=== PATIENT | male | born 1955 | race Hispanic/Latino ===

== ENCOUNTER 2024-03-10 01:26 | Inpatient (IN) | payer MEDICARE, SELFPAY ==
[2024-03-10] MEDS ORDERED: Ondansetron PF 4 MG/2 ML Vial ONE (01:43)
[2024-03-10 02:03] LABS: Hematocrit 39.5 % (38.8-50.0); Hemoglobin 13.3 g/dL (13.5-17.5); MDiff Complete? YES; Mean Corpuscular HGB CONC 33.7 g/dL (32.0-36.0); Mean Corpuscular Volume 86.1 fL (81.2-95.1); Mean Platelet Volume 12.2 fL (7.4-10.4); Platelet Count 181 10x3/uL (150-450); RBC Distribution Width 12.9 % (11.5-14.5); Red Blood Cell (RBC) Count 4.59 10x6/uL (4.32-5.72); White Blood Cell (WBC) Count 8.7 10x3/uL (3.5-10.5)
[2024-03-10 02:10] LABS: ALT (SGPT) 20 U/L (8-55); AST (SGOT) 20 U/L (5-34); Albumin 4.1 g/dL (3.4-4.8); Alkaline Phosphatase 103 U/L (40-110); Anion Gap 12 mmol/L (10-20); BUN (Urea Nitrogen) 13 mg/dL (8.4-25.7); Bilirubin, Total 0.3 mg/dL (0.2-1.2); Calc. Creatinine Clearance 0 mL/min (70-130); Calcium 9.6 mg/dL (7.8-10.44); Carbon Dioxide 26 mmol/L (23-31); Chloride 109 mmol/L (98-107); Estimated GFR 96; Globulin 3.5 g/dL (2.4-3.5); Glucose 108 mg/dL (80-115); Lipase 72 U/L (8-78); Potassium 3.6 mmol/L (3.5-5.1); Protein, Total 7.6 g/dL (5.8-8.1); Sodium 143 mmol/L (136-145)
[2024-03-10 02:16] LABS: Troponin I Less than 0.010 ng/mL (< 0.028)
[2024-03-10 02:22] LABS: Band 1 % (5-11); Eosinophils 2 % (0-10); Lymphocytes 30 % (21-51); Monocytes 4 % (0-10); Neutrophil 62 % (42-75); Reactive Lymphocytes 1 % (0-10)
[2024-03-10 02:26] LABS: Large Platelets SLIGHT (None Seen); RBC Morph Comment Within Normal Limits
[2024-03-10 02:27] LABS: Platelet Adequacy Comment Appears Adequate
[2024-03-10] MEDS ORDERED: Lidocaine Viscous Sol 2% 15 ml UD Cup ONE (05:14)
[2024-03-10] MEDS ORDERED: Milk Of Magnesia 30 ML UDCUP ONE (05:14)
[2024-03-10] MEDS: Lidocaine 2% Viscous 10 mL, Alum & Magn 30 mL SSW SCH (05:30)
[2024-03-10] MEDS ORDERED: Senokot S 8.6-50 MG TAB PO PRN (09:03)
[2024-03-10] MEDS ORDERED: Acetaminophen 325 MG TAB PO PRN (09:03)
[2024-03-10 09:44] LABS: Magnesium 2.3 mg/dL (1.6-2.6); Phosphorus 2.7 mg/dL (2.3-4.7)
[2024-03-10] MEDS: Enoxaparin 40 MG (0.4 mL) SYRINGE SC SCH (11:00)
[2024-03-10] MEDS: Aspirin 325 mg Enteric Coated Tablet PO SCH (11:00)
[2024-03-10 11:17] VITALS: BMI 29.3
[2024-03-10] MEDS: traMADol HCl 50 MG TAB PO PRN (12:12)
[2024-03-10] MEDS: Meclizine HCl 25 MG TAB PO SCH (15:00)
[2024-03-10] MEDS: Famotidine 20 MG TAB PO SCH (22:47)
[2024-03-10] MEDS: Atorvastatin Calcium 40 MG TAB PO SCH (22:48)
[2024-03-11 05:11] LABS: #Basophils 0.04 10x3/uL (0.0-0.2); #Eosinphils 0.28 10x3/uL (0.0-0.5); #Neutrophils 4.54 10x3/uL (1.5-8.4); %Basophils 0.5 % (0.0-2.0); %Eosinophils 3.5 % (0.0-6.0); %Lymphocytes 31.8 % (18.0-47.0); %Monocytes 7.5 % (0.0-10.0); %Neutrophils 56.5 % (40.0-75.0); Hemoglobin 13.2 g/dL (13.5-17.5); Mean Corpuscular HGB CONC 32.2 g/dL (32.0-36.0); Mean Corpuscular Hemoglobin 28.1 pg (27.0-33.0); Mean Corpuscular Volume 87.2 fL (81.2-95.1); Mean Platelet Volume 12.6 fL (7.4-10.4); Platelet Count 174 10x3/uL (150-450); RBC Distribution Width 13.1 % (11.5-14.5)
[2024-03-11 05:30] LABS: Anion Gap 12 mmol/L (10-20); BUN (Urea Nitrogen) 8 mg/dL (8.4-25.7); Calc. Creatinine Clearance 103 mL/min (70-130); Calcium 9.5 mg/dL (7.8-10.44); Carbon Dioxide 27 mmol/L (23-31); Chloride 107 mmol/L (98-107); Estimated GFR 96; Glucose 79 mg/dL (80-115); Magnesium 2.3 mg/dL (1.6-2.6); Potassium 3.8 mmol/L (3.5-5.1); Sodium 142 mmol/L (136-145)
[2024-03-11 05:32] LABS: Cardiac Risk 5.3 (Less than 4.5); Cholesterol 165 mg/dl (< 200 Desired); HDL Cholesterol 31 mg/dL (>60 Neg Risk); LDL Cholesterol, Calculated 108 mg/dL; Phosphorus 3.2 mg/dL (2.3-4.7); Triglycerides 130 mg/dL (Less than 150)
[2024-03-11 09:31] VITALS: BMI 29.3
[2024-03-11] MEDS: Enoxaparin 40 MG (0.4 mL) SYRINGE SC SCH (11:14)
[2024-03-11] MEDS: Aspirin 325 mg Enteric Coated Tablet PO SCH (11:14)
[2024-03-11] MEDS: Pantoprazole 40 MG VIAL IVP SCH (11:14)
[2024-03-11] MEDS: Dextrose 5%-Lactated Ringers 1,000 ML IV SCH (11:38)
[2024-03-12 08:18] VITALS: TEMP 98
[2024-03-12] MEDS: Aspirin Chewable 81 MG TAB PO SCH (09:53)
[2024-03-12 14:56] VITALS: BP 149/84
== END 2024-03-12 15:08 | DRG 65 ==
LOC: CSHERS 01:26 → CSHTELE 10:06 → OBSVTOIN 17:30
PROVIDERS: ADMIT Internal Medicine; ATTEND Internal Medicine
DX: I63.89 Other cerebral infarction (principal); G81.94 Hemiplegia, unspecified affecting left nondominant side; E78.5 Hyperlipidemia, unspecified; I10 Essential (primary) hypertension; E11.9 Type 2 diabetes mellitus without complications; E78.00 Pure hypercholesterolemia, unspecified; Z79.82 Long term (current) use of aspirin; Z79.899 Other long term (current) drug therapy; F17.210 Nicotine dependence, cigarettes, uncomplicated; R00.1 Bradycardia, unspecified
CPT/HCPCS: 36415; 70360; 70450; 70551; 71045; 74177; 74220; 80048; 80053; 80061; 83605; 83690; 83735; 84100; 84484; 85025; 93005; 93306; 93880; 96372; G0378; J1650; J2405; J2470